=== PATIENT | male | born 1965 | race African-American/Black ===

== ENCOUNTER 2017-07-20 10:24 | Emergency (ER) | payer BC ==
[2017-07-20] MEDS: ACETAMINOPHEN 500 MG TABLET PO ×2 (11:20)
== END 2017-07-20 12:17 | disposition home or self-care (01) ==
LOC: ER 10:24
DX: S80.01XA Contusion of right knee, initial encounter (principal); E11.9 Type 2 diabetes mellitus without complications; Z88.0 Allergy status to penicillin; W00.9XXA Unspecified fall due to ice and snow, initial encounter; Y93.89 Activity, other specified; Y92.89 Other specified places as the place of occurrence of the external cause; Y99.8 Other external cause status
CPT/HCPCS: 73564; 99284